=== PATIENT | male | born 1940 | race Caucasian/White ===

== ENCOUNTER 2017-09-17 15:38 | Emergency (ER) | payer MEDICARE, OTHER | END 2017-09-17 18:11 | disposition home or self-care (01) | LOC: FTE 15:38 | DX: J20.9 Acute bronchitis, unspecified (principal); I10 Essential (primary) hypertension | CPT/HCPCS: 71046; 87400; 93005; 99285-25 ==

== ENCOUNTER 2017-09-26 13:49 | Emergency (ER) | payer MEDICARE, OTHER | END 2017-09-26 17:49 | disposition home or self-care (01) | LOC: FTE 13:49 | DX: J40 Bronchitis, not specified as acute or chronic (principal); I10 Essential (primary) hypertension | CPT/HCPCS: 99282 ==

== ENCOUNTER 2018-09-25 10:16 | Emergency (ER) | payer MEDICARE, OTHER | END 2018-09-25 13:36 | disposition home or self-care (01) | LOC: FTE 10:16 | DX: J40 Bronchitis, not specified as acute or chronic (principal); I10 Essential (primary) hypertension | CPT/HCPCS: 71045; 99283-25 ==